=== PATIENT | male | born 1995 ===

== ENCOUNTER 2023-06-15 06:16 | Emergency (ER) | payer SELFPAY ==
[~2023-06-15] VITALS: Ht 170.2 cm; Wt 95.2 kg
[2023-06-15 07:07] VITALS: BP 145/85
== END 2023-06-15 09:24 | disposition home or self-care (01) ==
LOC: ER 06:16
DX: S61.412A Laceration without foreign body of left hand, initial encounter (principal); F17.290 Nicotine dependence, other tobacco product, uncomplicated; W18.30XA Fall on same level, unspecified, initial encounter
CPT/HCPCS: 12002; 99282-25

== ENCOUNTER 2025-07-02 21:29 | Emergency (ER) | payer OTHER ==
[~2025-07-02] VITALS: Ht 175.3 cm; Wt 83.9 kg
[2025-07-02 21:34] VITALS: BP 127/77
== END 2025-07-02 22:37 | disposition home or self-care (01) ==
LOC: ER 21:29
DX: S01.01XA Laceration without foreign body of scalp, initial encounter (principal); F17.290 Nicotine dependence, other tobacco product, uncomplicated; W01.0XXA Fall on same level from slipping, tripping and stumbling without subsequent striking against object, initial encounter
CPT/HCPCS: 12002; 70450; 72125; 99284-25